=== PATIENT | female | born 1985 | race American Indian/Alaskan Native ===

== ENCOUNTER 2016-12-12 20:00 | Emergency (ER) | payer MEDICAID ==
[2016-12-12 20:22] VITALS: BP 133/86
--- NOTE | 2016-12-12 23:42 | Emergency Department Report ---
HPI - General Chief Complaint: Allergic Reaction Time Seen by Provider: 12/12/16 23:27 - HPI HPI: Patient is a 31-year-old female presents to ED complaining of breaking out in hives after she had Egg Mc[employer]uffin and coffee from [employer] this morning. Patient states she started to have burning and itching and redness generalized under skating about noon this afternoon. Patient states allergy to egg she had an [employer] breakfast. She denies fevers/chills/nausea/vomiting/chest pain/diarrhea/difficulty breathing or any throat pain ED Past Medical Hx - Past Medical History Previous Medical History?: Yes Hx Hypertension: Yes Hx Congestive Heart Failure: No Hx Diabetes: Yes Hx Deep Vein Thrombosis: No Hx Renal Disease: No Hx Sickle Cell Disease: No Hx Seizures: No Hx Asthma: No Hx COPD: No Hx HIV: No Additional medical history: high cholesterol. neuropathy - Surgical History Past Surgical History?: Yes Additional Surgical History: x 3 - Social History Smoking Status: Never Smoker Substance Use Type: None - Medications Home Medications: Home Medications Medication Instructions Recorded Confirmed Last Taken Type metFORMIN [Glucophage] 500 mg PO BID #90 tablet 06/19/13 12/12/16 12/12/16 Rx Insulin Aspart [NovoLOG 100 30 unit SQ TID 11/13/13 12/12/16 12/12/16 History UNITS/ML VIAL] Lisinopril [Zestril] 20 mg PO QDAY 12/12/16 12/12/16 Unknown History Omeprazole 10 mg PO DAILY 12/12/16 12/12/16 Unknown History Simvastatin [Zocor TAB] 10 mg PO QHS 12/12/16 12/12/16 Unknown History Famotidine [Pepcid] 20 mg PO DAILY #10 tablet 12/13/16 Unknown Rx Neomy/Baci/Polymyx/Hc Top Oint 1 applic TP TID #1 tube 12/13/16 Unknown Rx [Cortisporin TOPICAL Oint] hydrOXYzine HCL [Atarax] 25 mg PO QHS PRN #26 tablet 12/13/16 Unknown Rx ED Review of Systems ROS: Stated complaint: RASH Other details as noted in HPI Constitutional: denies: chills, fever Eyes: denies: eye pain, eye discharge, vision change ENT: denies: ear pain, throat pain Respiratory: denies: cough, shortness of breath, wheezing Cardiovascular: denies: chest pain, palpitations Endocrine: no symptoms reported Gastrointestinal: denies: abdominal pain, nausea, diarrhea Genitourinary: denies: urgency, dysuria, discharge Musculoskeletal: denies: back pain, joint swelling, arthralgia Skin: rash, pruritus. denies: lesions Neurological: denies: headache, weakness, paresthesias Psychiatric: denies: anxiety, depression Hematological/Lymphatic: denies: easy bleeding, easy bruising Physical Exam - Physical Exam Vital Signs: Vital Signs 12/12/16 20:18 Temperature 98.7 F Pulse Rate 82 Respiratory 20 Rate Blood Pressure 133/86 O2 Sat by Pulse 100 Oximetry Physical Exam: GENERAL: Alert and oriented x3, no apparent distress, Normal Gait, atraumatic. HEAD: Head is normocephalic and a-traumatic. MOUTH:Mouth is well hydrated and without lesions. Tonsils nonerythematous or swollen, Uvula midline, Tongue not elevated. Mucous membranes are moist. Posterior pharynx clear, no exudate or lesions. Patent airways. NECK: Supple. Non edematous, No carotid bruits. No lymphadenopathy or thyromegaly. No C-spine tenderness LUNGS: Symetrical with respiration, No wheezing, no rales or crackles, CTAB. HEART: S1, S2 present, regular rate and rhythm without murmur, no rubs, no gallops. ABDOMEN: No organomegaly was noted,Positive bowel sounds, soft, and non- distended. . Nontender to palpation on all Quadrants, NO CVA tenderness. SKIN: Warm and dry, generalized erythematous based maculopapular rash on trunk , chest, left knee. No other lesions, No ulceration or induration present. ED Course Vital Signs 12/12/16 20:18 Temperature 98.7 F Pulse Rate 82 Respiratory 20 Rate Blood Pressure 133/86 O2 Sat by Pulse 100 Oximetry ED Medical Decision Making - Medical Decision Making 31-year-old female presents with allergic reaction ED course: Patient received Pepcid, prednisone ED. Discussed home medication of antihistamine, to help with itching. Discussed patient in follow-up Department care physician. Discussed the patient the rails what's been ingested. Due to her large allergies VSigns are normal. Patient is not in any acute respiratory distress. Patient understands all instructions given and is to follow-up. Discussed the patient is any worsening symptoms to return to ED. Critical care attestation.: If time is entered above; I have spent that time in minutes in the direct care of this critically ill patient, excluding procedure time. ED Disposition Clinical Impression: Allergic dermatitis due ingested food Disposition: DISCHARGED TO HOME OR SELFCARE Is pt being admited?: No Does the pt Need Aspirin: No Condition: Stable Instructions: Contact Dermatitis (ED), Allergies (ED) Prescriptions: hydrOXYzine HCL [Atarax] 25 mg PO QHS PRN #26 tablet PRN Reason: Itching Famotidine [Pepcid] 20 mg PO DAILY #10 tablet Neomy/Baci/Polymyx/Hc Top Oint [Cortisporin TOPICAL Oint] 1 applic TP TID #1 tube Referrals: ISAMAR WAGNER III, MINDY-BC [Primary Care Provider] - 3-5 Days Forms: Work/School Release Form(ED) Time of Disposition: 00:22
[2016-12-12] MEDS ORDERED: PROTONIX PO ONE (23:55)
[2016-12-12] MEDS ORDERED: PEPCID PO ONE (23:59)
== END 2016-12-13 00:30 | disposition home or self-care (01) ==
LOC: ED 20:00
DX: L23.9 Allergic contact dermatitis, unspecified cause (principal); I10 Essential (primary) hypertension
CPT/HCPCS: 96372; 99282; J2930